=== PATIENT | male | born 1990 | race Caucasian/White ===

== ENCOUNTER 2018-10-29 18:16 | Emergency (ER) | payer SELFPAY ==
[~2018-10-29] VITALS: Ht 188 cm; Wt 65.8 kg
--- NOTE | 2018-10-29 18:52 | NUR ---
REPORT GIVEN TO ЕКАТЕРИНА CORTEZ
--- NOTE | 2018-10-29 19:20 | Diagnostic Imaging Report ---
A single frontal view of the chest and 5 additional views of the right ribs. HISTORY: Fell down stairs, right lateral rib pain COMPARISON: None available. DISCUSSION: Portable technique, limits sensitivity of the exam. Tubes/Lines: None Lungs and pleura: The lungs are well inflated. No evidence of a consolidative pneumonia or pulmonary alveolar edema. No definite pleural effusion or pneumothorax is identified. Heart and mediastinum: The cardiomediastinal silhouette appear(s) unremarkable. Bones and soft tissues: Appear unremarkable, given this limited exam. IMPRESSION: 1. No acute radiographic abnormality. 2. Specifically, no acute displaced rib fracture. Signed by: Dr. Colin Yanez D.O., M.M.M. on 10/29/2018 7:16 PM
[2018-10-29] MEDS ORDERED: ULTRAM50 MG PO (19:58)
[2018-10-29 20:38] VITALS: BP 12/80
== END 2018-10-29 20:30 | disposition home or self-care (01) ==
LOC: ER 18:16
DX: S20.221A Contusion of right back wall of thorax, initial encounter (principal); W10.8XXA Fall (on) (from) other stairs and steps, initial encounter; Y93.01 Activity, walking, marching and hiking; Y92.008 Other place in unspecified non-institutional (private) residence as the place of occurrence of the external cause
CPT/HCPCS: 71101; 99283

== ENCOUNTER 2019-05-14 14:52 | Inpatient (IN) | payer SELFPAY ==
[~2019-05-14] VITALS: Ht 188 cm; Wt 65.8 kg
[~2019-05-14 14:52] MED LIST: ULTRAM50 MG PO
--- OUTSIDE RECORDS SUMMARY | 2019-05-14 14:55 | XMS REPORT ---
Author Author [facility] Address Unknown Phone Unavailable Care Team Providers Care Cover Stitch Machine Operator Name Role Phone UNKNOWN, REFERRING PP Unavailable TINO, Kg ESPOSITO Unavailable Unavailable Problems This patient has no known problems. Allergies, Adverse Reactions, Alerts This patient has no known allergies or adverse reactions. Medications This patient has no known medications. Encounters Start Date/Time End Date/Time Encounter Type Admission Type Attending [facility] Care Facility Care Department Encounter ID 2016-07-24 03:03:00 2016-07-24 03:03:00 Emergency E [facility] [id number] Results Test Description Test Time Test Comments Text Results Atomic Results Result Comments RIBS UNILAT W/CXR 2018-10-29 19:14:00 [place] [address] Patient Name: ADEOLA ENGLISH MR #: [id number] : 1990 Age/Sex: 27/M Req #: [id number] Adm Physician: Ordered by: PEACE BECKFORD BUILDING SERVICES TECHNICIAN Report #: [id number] Location: ER Room/Bed: Procedure: [id number] DX/RIBS UNILAT W/CXR Exam Date: 10/29/18 Exam Time: 1900 REPORT STATUS: Signed A single frontal view of the chest and 5 additional views of the right ribs. HISTORY: Fell down stairs, right lateral rib pain COMPARISON: None available. DISCUSSION: Portable technique, limits sensitivity of the exam. Tubes/Lines: None Lungs and pleura: The lungs are well inflated. No evidence of a consolidative pneumonia or pulmonary alveolar edema. No definite pleural effusion or pneumothorax is identified. Heart and mediastinum: The cardiomediastinal silhouette appear(s) unremarkable. Bones and soft tissues: Appear unremarkable, given this limited exam. IMPRESSION: 1. No acute radiographic abnormality. 2. Specifically, no acute displaced rib fracture. Signed by: Dr. Colin Yanez D.O., M.M.M. on 10/29/2018 7:16 PM Dictated By: COLIN YANEZ DO 15 Transcribed By: LEONEL on 10/29/181915 COPY TO: PEACE BECKFORD NP
[2019-05-14] MEDS ORDERED: ONDANSETRON HCL INJ 2MG/ML 2ML 2 MG/ML VIAL IV STA (15:28)
[2019-05-14] MEDS ORDERED: PANTOPRAZOLE 40 MG 10ML VIAL IV STA (15:28)
[2019-05-14 16:13] LABS: BASOPHILS # (AUTO) 0.1 (0.0-0.1); BASOPHILS % 0.6 % (0.0-1.0); EOSINOPHILS # (AUTO) 0.1 (0.0-0.4); EOSINOPHILS % 0.7 % (0.0-6.0); HEMATOCRIT 42.5 % (38.2-49.6); LYMPHOCYTES # (AUTO) 1.5 (1.0-3.2); LYMPHOCYTES % 14.1 % (18.0-39.1); MEAN CORPUSCULAR HEMOGLOBIN 33.2 pg (28-32); MEAN CORPUSCULAR HGB CONC 32.9 g/dL (31-35); MEAN CORPUSCULAR VOLUME 100.7 fL (81-99); MONOCYTES # (AUTO) 0.8 (0.2-0.8); MONOCYTES % 7.7 % (4.4-11.3); NEUTROPHILS # (AUTO) 8.2 (2.1-6.9); NEUTROPHILS % 76.7 % (38.7-80.0); PLATELET COUNT 228 x10e3/uL (140-360); RED BLOOD COUNT 4.22 x10e6/uL (4.3-5.7); RED CELL DISTRIBUTION WIDTH 13.4 % (11.7-14.4)
[2019-05-14 16:29] LABS: ALANINE AMINOTRANSFERASE 21 IU/L (0-55); ALBUMIN 4.2 g/dL (3.5-5.0); ALBUMIN/GLOBULIN RATIO 1.4 (0.8-2.0); ALKALINE PHOSPHATASE 78 IU/L (40-150); BLOOD UREA NITROGEN 8 mg/dL (7-26); BUN/CREATININE RATIO 10 (6-25); CALCIUM 8.9 mg/dL (8.4-10.2); CARBON DIOXIDE 29 mmol/L (22-29); CHLORIDE 105 mmol/L (98-107); EST GLOMERULAR FILTRATION RATE > 60 ML/MIN (60-); GLUCOSE 101 mg/dL (74-118); LIPASE 866 U/L (8-78); SODIUM 143 mmol/L (136-145)
--- NOTE | 2019-05-14 16:42 | Diagnostic Imaging Report ---
Abdominal series, 4 radiographs Clinical indications: Epigastric pain Comparison: None Findings: Frontal view of the chest and supine and upright views of the abdomen were obtained. The heart is within normal limits of size. The mediastinal and hilar contours are unremarkable. There is no focal consolidation, sizable pleural effusion, or pneumothorax. The bowel gas pattern is nonobstructive. No dilated loops of small or large bowel are identified. There is no free intraperitoneal air or air-fluid levels. There are no acute osseous abnormalities. Impression: 1. Clear chest. 2. Nonobstructive bowel gas pattern Signed by: Osman Blanchard MD on 05/14/2019 4:39 PM
[2019-05-14 17:27] LABS: COLOR,URINE YELLOW (YELLOW)
[2019-05-14 17:28] LABS: BILIRUBIN,URINE NEGATIVE (NEGATIVE); CLARITY,URINE SL CLOUDY (CLEAR); KETONES,URINE NEGATIVE (NEGATIVE); LEUKOCYTE ESTERASE ,URINE NEGATIVE (NEGATIVE); NITRITE,URINE NEGATIVE (NEGATIVE); PROTEIN,URINE DIPSTICK 1+ (NEGATIVE); URINE UROBILINOGEN 0.2 mg/dL (0.2 - 1)
[2019-05-14 17:29] LABS: AMPHETAMINES SCREEN,URINE NEGATIVE (NEGATIVE); BENZODIAZEPINES SCREEN,URINE NEGATIVE (NEGATIVE); PHENCYCLIDINE SCREEN,URINE NEGATIVE (NEGATIVE)
[2019-05-14] MEDS ORDERED: MORPHINE SULFATE 2 MG/ML SYR 1ML IV PRN (17:30)
[2019-05-14 17:31] LABS: EPITHELIAL CELLS,URINE FEW /LPF
[2019-05-14] MEDS: MORPHINE SULFATE INJ 4 MG/ML INJ 1ML IV PRN (21:14)
[2019-05-14] MEDS: SODIUM CHLORIDE 0.9% 1000ML 1,000 ML IV SCH (21:14)
[2019-05-15] VITALS (7 sets, daily range): BP systolic 106–121; BP diastolic 53–74
--- NOTE | 2019-05-15 01:11 | NUR ---
RECEIVED REPORT FROM ER- PT TO ROOM 104 VIA W/C. PT IS ALERT AND ORIENTED X4. PT C/O OF NAUSEA AND VOMITING SINCE YESTERDAY. 20G IV IN RT ARM. SITE HEALTHY AND FLUSHES EASILY. RESPIRATIONS ARE EVEN AND UNLABORED. PT IS NPO.FAMILY IS AT BEDSIDE.BS PRESENT. LBM YESTERDAY AND WAS NORMAL. CALL LIGHT WITHIN REACH. ORIENTED PT AND FAMILY TO ROOM.PT HAS NONPRODUCTIVE COUGH.NO FEVER. PT VOIDING PER URINAL. PT ABLE TO WALK TO BATHROOM AD MILENA.PT RESTING IN SEMI- FOWLERS POSITION. WILL MONITOR FOR PAIN RELIEF.
[2019-05-15] MEDS ORDERED: PANTOPRAZOLE 40 MG 10ML VIAL ONE (02:38)
[2019-05-15] MEDS: ONDANSETRON HCL INJ 2MG/ML 2ML 2 MG/ML VIAL IV PRN ×5 (02:51→22:57)
[2019-05-15] MEDS: MORPHINE SULFATE INJ 4 MG/ML INJ 1ML IV PRN ×5 (02:54→23:03)
[2019-05-15] MEDS: SODIUM CHLORIDE 0.9% 1000ML 1,000 ML IV SCH (06:00)
[2019-05-15 09:22] LABS: CHOL/HDL RATIO 3.3 (3.9-4.7)
--- NOTE | 2019-05-15 11:19 | Diagnostic Imaging Report ---
EXAM: CT Abdomen and Pelvis WITH intravenous contrast INDICATION: Pancreatitis COMPARISON: Abdominal radiographs of 05/14/2019 TECHNIQUE: Abdomen and pelvis were scanned utilizing a multidetector helical scanner from the lung base to the pubic symphysis after administration of IV contrast. Coronal and sagittal reformations were obtained. Routine protocol was performed. Scan was performed during portal venous phase. IV CONTRAST: 100mL of Isovue 370 ORAL CONTRAST: Water RADIATION DOSE: Total DLP: 230.4 mGy*cm Dose modulation, iterative reconstruction, and/or weight based adjustment of the mA/kV was utilized to reduce the radiation dose to as low as reasonably achievable. FINDINGS: LOWER THORAX: Dependent right lower lobe subsegmental atelectasis. HEPATOBILIARY: Diffuse hepatic steatosis. No focal liver lesion. No biliary ductal dilation. Unremarkable gallbladder. SPLEEN: No splenomegaly. PANCREAS: No focal masses or ductal dilatation. No CT evidence of pancreatitis. ADRENALS: No adrenal nodules. KIDNEYS/URETERS: No hydronephrosis, stones, or solid mass lesions. PELVIC ORGANS/BLADDER: Unremarkable. PERITONEUM / RETROPERITONEUM: No free air or fluid. LYMPH NODES: No lymphadenopathy. VESSELS: Unremarkable. GI TRACT: Status post gastric bypass. Surgical anastomoses in the right upper quadrant and left lower quadrant. No abnormal bowel thickening. No bowel obstruction. BONES AND SOFT TISSUES: No acute osseous injury. No suspicious lytic or blastic lesions. IMPRESSION: No acute findings in the abdomen or pelvis. Specifically, no CT evidence of acute pancreatitis. Diffuse hepatic steatosis. Signed by: Bettye Romero MD on 05/15/2019 11:16 AM
--- NOTE | 2019-05-15 11:46 | History and Physical ---
HISTORY OF PRESENT ILLNESS: The patient is a 28-year-old male with past medical history positive for tobacco and alcohol use. Came with nausea, vomiting, abdominal pain. He was found to have acute pancreatitis. He was admitted to the hospital. REVIEW OF SYSTEMS: CARDIOVASCULAR: No chest pain or palpitation. RESPIRATORY: No shortness of breath. No cough. GASTROINTESTINAL: He had nausea, vomiting, and abdominal pain. No diarrhea. GENITOURINARY: No frequency or dysuria. PAST MEDICAL HISTORY: Negative for any significant medical condition. ALLERGIES: HE IS ALLERGIC TO PEANUTS. SOCIAL HISTORY: He smokes. He drinks socially. PHYSICAL EXAMINATION: VITAL SIGNS: On the blood pressure 106/59, temperature 97.8, heart rate 55 per minute, respiratory rate 16 per minute, oxygen saturation 98%. HEART: Showed regular rhythm. Normal S1, S2 sound. LUNGS: Clear bilaterally. ABDOMEN: Soft. Minimal epigastric and periumbilical tenderness. LABORATORY DATA: On the CBC; white count 10.71, hemoglobin 14.0, hematocrit 42.5, platelet count 233,000. On the complete metabolic panel, sodium 143, potassium 4.0, chloride 105, CO2 of 29, BUN 8, creatinine 0.80, glucose 101, calcium 8.9, total bilirubin 0.5, AST 31, ALT 21, alkaline phosphatase 78, total protein 7.1, albumin 4.2, globulin 2.9, albumin globulin ratio 1.4. Lipase is elevated at 866. He has drug screen positive for opiates. Urinalysis is unremarkable except for some protein. Influenza A and B negative. FINAL IMPRESSION: Acute pancreatitis. We are going to do a CT of the abdomen. We are going to consult Dr. Ceferino George of Gastroenterology. We are going to order CBC, CMP, lipase level tomorrow. We are going to also order a lipid profile test to see the patient has pancreatitis due to hypertriglyceridemia. He denies heavy alcohol abuse. He said that he drinks occasionally, so treatment IV fluids, pain medications, n.p.o. Monitor the CMP, CBC, and lipase level tomorrow. The patient will continue with normal saline at 125 mL an hour, Tylenol 650 mg q.6 hours as needed for pain or fever, morphine 4 mg IV q.4 hours as needed for severe pain, Zofran 4 mg IV q.4 hours as needed for nausea and vomiting, tramadol 50 mg every 6 hours as needed for pain. MD YANI Burris/SARINA /[id number]
[2019-05-15] MEDS: DEXTROSE 5%/0.45% SOD CHL 1,000 ML IV SCH ×2 (11:58→22:06)
[2019-05-15] MEDS ORDERED: SODIUM CHLORIDE 0.9% 50ML 50 ML ONE (12:59)
[2019-05-15] MEDS ORDERED: IOPAMIDOL 370 MG/ML 200 ML INFUS..BTL INJ ONE (12:59)
[2019-05-15] MEDS: TRAMADOL HCL 50 MG TAB PO PRN (13:45)
--- NOTE | 2019-05-15 13:50 | NUR ---
Visit made by the Spiritual Care Department Pastoral Visitor, Nubia Arroyo. PV provided pastoral presence, hospitality, and supportive listening. Pastoral Visitor informed pt/family of the scope of Client Associate Services and availability. OLGA LIDIA LARKIN Personal Care Service Provider Spiritual Care Department O: [phone]
--- NOTE | 2019-05-15 19:00 | NUR ---
REPORT RECEIVED FROM DAY NURSE. PT IS ALERT AND ORIENTED X4. RESPIRATIONS ARE EVEN AND UNLABORED. TELE ON. 20G RT PIV IN RT FOREARM- SITE HEALTHY. PT VOIDING PER URINAL OR BATHROOM. PT REMAINS NPO EXCEPT PAIN MED ORAL WITH SIP OF WATER. PT DENIES PAIN AND NAUSEA AT THIS TIME.FAMILY AT BEDSIDE. PT IN SEMI-FOWLERS POSITION WATCHING TV. NO COUGH NOTED. CALL LIGHT WITHIN REACH. BED LOCKED AND IN LOW POSITION.
--- NOTE | 2019-05-15 19:15 | NUR ---
Report given to oncoming nurse of patient's status. Resting in bed. No s/s of acute distress noted. Side rails upx2, call light within reach.
[2019-05-16] VITALS (8 sets, daily range): BP systolic 110–131; BP diastolic 55–75
[2019-05-16] MEDS: ONDANSETRON HCL INJ 2MG/ML 2ML 2 MG/ML VIAL IV PRN ×4 (04:59→14:08)
[2019-05-16] MEDS: MORPHINE SULFATE INJ 4 MG/ML INJ 1ML IV PRN (05:10)
[2019-05-16 05:54] LABS: BASOPHILS % 0.5 % (0.0-1.0); EOSINOPHILS # (AUTO) 0.2 (0.0-0.4); EOSINOPHILS % 2.9 % (0.0-6.0); HEMATOCRIT 34.9 % (38.2-49.6); HEMOGLOBIN 11.5 g/dL (14.0-18.0); LYMPHOCYTES # (AUTO) 1.7 (1.0-3.2); LYMPHOCYTES % 26.6 % (18.0-39.1); MEAN CORPUSCULAR VOLUME 100.3 fL (81-99); MONOCYTES # (AUTO) 0.7 (0.2-0.8); MONOCYTES % 10.8 % (4.4-11.3); NEUTROPHILS # (AUTO) 3.7 (2.1-6.9); PLATELET COUNT 176 x10e3/uL (140-360); RED BLOOD COUNT 3.48 x10e6/uL (4.3-5.7); RED CELL DISTRIBUTION WIDTH 13.1 % (11.7-14.4)
[2019-05-16 06:16] LABS: ALANINE AMINOTRANSFERASE 14 IU/L (0-55); ALBUMIN 3.5 g/dL (3.5-5.0); ALBUMIN/GLOBULIN RATIO 1.5 (0.8-2.0); ALKALINE PHOSPHATASE 70 IU/L (40-150); BLOOD UREA NITROGEN < 5 mg/dL (7-26); CALCIUM 8.4 mg/dL (8.4-10.2); CARBON DIOXIDE 28 mmol/L (22-29); CHLORIDE 106 mmol/L (98-107); CREATININE, SERUM 0.75 mg/dL (0.72-1.25); EST GLOMERULAR FILTRATION RATE > 60 ML/MIN (60-); GLUCOSE 116 mg/dL (74-118); SODIUM 140 mmol/L (136-145)
[2019-05-16 06:18] LABS: BUN/CREATININE RATIO 7 (6-25)
[2019-05-16] MEDS: DEXTROSE 5%/0.45% SOD CHL 1,000 ML IV SCH (06:58)
--- NOTE | 2019-05-16 07:33 | NUR ---
Pt resting in bed with eyes closed. Acyanotic. Equal rise and fall of chest noted with each respiration. D51/2NS infusing via RAC IV. No distress noted. Call light in reach. Siderails up x2. Bed low. Family present at bedside.
[2019-05-16] MEDS: TRAMADOL HCL 50 MG TAB PO PRN (08:19)
[2019-05-16] MEDS ORDERED: AZITHROMYCIN 250 MG TAB PO ONE (08:45)
[2019-05-16] MEDS: ACETAMINOPHEN 325 MG TAB PO PRN ×2 (08:55→22:17)
--- NOTE | 2019-05-16 09:01 | NUR ---
D51/2NS infusion via RAC IV stopped/discontinued per physician order. IV saline locked. No distress noted.
[2019-05-16 09:32] LABS: BASOPHILS % 0.4 % (0.0-1.0); EOSINOPHILS # (AUTO) 0.2 (0.0-0.4); EOSINOPHILS % 2.7 % (0.0-6.0); HEMATOCRIT 33.7 % (38.2-49.6); HEMOGLOBIN 11.2 g/dL (14.0-18.0); LYMPHOCYTES # (AUTO) 1.7 (1.0-3.2); LYMPHOCYTES % 21.7 % (18.0-39.1); MEAN CORPUSCULAR HEMOGLOBIN 33.1 pg (28-32); MEAN CORPUSCULAR HGB CONC 33.2 g/dL (31-35); MEAN CORPUSCULAR VOLUME 99.7 fL (81-99); MONOCYTES % 12.5 % (4.4-11.3); NEUTROPHILS # (AUTO) 4.8 (2.1-6.9); NEUTROPHILS % 62.3 % (38.7-80.0); PLATELET COUNT 169 x10e3/uL (140-360); RED BLOOD COUNT 3.38 x10e6/uL (4.3-5.7)
--- NOTE | 2019-05-16 10:21 | NUR ---
GAVE PACKET OF INFORMATION WITH COMMUNITY RESOURCES FOR ASSISTANCE WITH LOW TO NO INCOME TO PATIENT. RESOURCES THAT PATIENT MAY BE ABLE TO FOLLOW UP UPON DISCHARGE. PT EDUCATED ON EACH RESOURCE AND UNDERSTANDING HOW TO FOLLOW UP TO SEE IF QUALIFIED FOR EACH RESOURCE.
--- NOTE | 2019-05-16 10:36 | Consultation ---
DATE OF CONSULTATION: 05/16/2019 REASON FOR CONSULTATION: Fever. Thank you, Dr. Larkin for asking me to see this patient. HISTORY OF PRESENT ILLNESS: The patient is a 28-year-old man, who was referred for fever and cough. He was admitted through the emergency department with pancreatitis. He presented to the emergency department on 05/14/2019 with nausea, vomiting, and abdominal pain. There was no diarrhea and patient did not have fever at home. He has started spiking fever this morning and has a slight cough as well. He had a right elbow peripheral IV placement on admission. He denies foreign travel and sick contacts. PAST MEDICAL HISTORY: None. PAST SURGICAL HISTORY: Exploratory laparotomy for impairment injury to the abdomen. ALLERGIES: PEANUT. MEDICATIONS: The current antibiotic is azithromycin 250 mg orally daily. FAMILY HISTORY: Noncontributory. SOCIAL HISTORY: He vapes and dips tobacco. He drinks alcohol occasionally. He denies recreational drug use. REVIEW OF SYSTEMS: As per history of present illness. PHYSICAL EXAMINATION: GENERAL: No acute distress. Does not appear toxic. VITAL SIGNS: T-max 100.8, pulse rate 88, respiratory rate 17, blood pressure 110/55, weight 145 pounds. HEENT: Normocephalic and atraumatic. There is no icterus or injection of conjunctiva. There is no ear or nasal discharge. Moist oral mucosa. No pharyngeal erythema or exudate. NECK: Supple. No meningismus. LUNGS: Clear to auscultation bilaterally. HEART: Normal S1, S2. Regular. ABDOMEN: Soft and nontender. EXTREMITIES: Without edema, clubbing, or cyanosis. There is mild erythema of the right elbow peripheral IV site. SKIN: Multiple tattoos. There is mild erythema of the right forearm at peripheral IV site. STITCHING DEPARTMENT SUPERVISOR: Awake, alert, and oriented to person, place, and time. Nonfocal. LABORATORY AND DIAGNOSTICS: WBC 7690, hemoglobin 11.2, platelets 169,000, neutrophils 62.3, lymphocytes 21.7, monocytes 12.5, eosinophils 2.7, and basophils 0.4. BUN less than 5, creatinine 0.75. Urine drug screen was positive for opiates. Influenza antigen test was negative. CT scan of the abdomen and pelvis showed no acute findings in the abdominal pelvis and specifically no CT evidence of acute pancreatitis. IMPRESSION: 1. Fever, likely secondary to phlebitis. 2. Question of mild bronchitis. PLAN: 1. Change Hep-Lock. 2. Await GI input. 3. Smoking cessation counseling was provided to the patient. MD MARIA EUGENIA Santana/SARINA /[id number]
--- NOTE | 2019-05-16 11:16 | Diagnostic Imaging Report ---
EXAMINATION: CHEST 2 VIEWS INDICATION: Fever, cough COMPARISON: Chest radiograph 05/14/2019 FINDINGS: LINES/TUBES:None LUNGS:The lungs are well-inflated. No focal consolidation or pulmonary edema. PLEURA:No pleural effusion or pneumothorax. MEDIASTINUM:The cardiomediastinal silhouette appears normal in size and shape. BONES/SOFT TISSUES:No acute osseous injury. ABDOMEN:No free air under the diaphragm. IMPRESSION: No focal pneumonia or pulmonary edema. Signed by: Bettye Romero MD on 05/16/2019 11:14 AM
--- NOTE | 2019-05-16 18:53 | NUR ---
RECEIVED REPORT FROM PREVIOUS NURSE. CALL LIGHT WITHIN REACH. PATIENT IN BED..
--- NOTE | 2019-05-16 19:06 | NUR ---
REPORT GIVEN TO ЕКАТЕРИНА FUENTES. PATIENT AAOX3. ACYANOTIC. NO DISTRESS NOTED. CALL LIGHT IN REACH. SIDERAILS UP X2. BED LOW.
[2019-05-16] MEDS: PANTOPRAZOLE 40 MG 10ML VIAL IV SCH (22:16)
[2019-05-17 04:00] VITALS: BP 103/57
--- NOTE | 2019-05-17 07:20 | NUR ---
GAVE REPORT TO ONCOMING NURSE. CALL LIGHT WITHIN REACH. PATIENT IN BED. FAMILY AT BEDSIDE.
[2019-05-17 07:59] VITALS: BP 127/60
[2019-05-17] MEDS: PANTOPRAZOLE 40 MG 10ML VIAL IV SCH (08:37)
[2019-05-17] MEDS ORDERED: AZITHROMYCIN 250 MG TAB PO SCH (09:00)
[2019-05-17 09:58] VITALS: BP 127/60
[2019-05-17] MEDS ORDERED: ONDANSETRON HCL 4 MG ORAL DISINTEGRATING TAB PO PRN (10:45)
[2019-05-17 12:15] VITALS: BP 114/69
--- NOTE | 2019-05-17 15:00 | NUR ---
Dr. Marion has not yet completed rounds at this time, call to his answering service and left a message. No call back yet.
[2019-05-17 16:30] VITALS: BP 133/77
--- NOTE | 2019-05-17 17:02 | NUR ---
Patient had lunch and dinner, no N/V, no distress and still waiting for rounds by infectious disease.
--- NOTE | 2019-05-17 17:25 | NUR ---
Call back from Dr. Marion and cleared patient for discharge. Blood cultures negative and prescription provided to patient. Discharge summary given to patient and instructed to follow up with primary care physician.
[2019-05-17] MEDS ORDERED: AZITHROMYCIN250 MG PO (17:30)
[2019-05-17] MEDS: TRAMADOL HCL 50 MG TAB PO PRN (17:40)
[2019-05-17] MEDS ORDERED: PANTOPRAZOLE SOD 40 MG TABEC PO SCH (21:00)
== END 2019-05-17 18:23 | disposition home or self-care (01) | DRG 439 ==
LOC: ER 14:52 → ERHOLD 22:12 → MED/SURG 05-15 01:01
PROVIDERS: ADMIT Internal Medicine; ATTEND Internal Medicine
DX: K85.90 Acute pancreatitis without necrosis or infection, unspecified (principal); T80.1XXA Vascular complications following infusion, transfusion and therapeutic injection, initial encounter; Z72.0 Tobacco use; Z72.89 Other problems related to lifestyle; Z91.010 Allergy to peanuts; J40 Bronchitis, not specified as acute or chronic; K30 Functional dyspepsia
CPT/HCPCS: 36415; 71046; 74022; 74177; 80053; 80061; 80307; 81001; 82607; 82746; 83690; 85025; 87040; 87400; 96361; 99284; J2270; J2405; J7030; Q9967